=== PATIENT | female | born 1960 | race Caucasian/White ===

== ENCOUNTER 2017-08-11 21:45 | Inpatient (IN) | payer MEDICAID, OTHER ==
[~2017-08-11] VITALS: Ht 167.6 cm; Wt 86.2 kg
[2017-08-11 21:51] VITALS: BP 141/71
[2017-08-11] MEDS ORDERED: METF500T PO (21:54)
[2017-08-11] MEDS ORDERED: CARV3.12 PO (21:55)
[2017-08-11] MEDS ORDERED: HYDR-3423 PO (21:55)
[2017-08-11] MEDS ORDERED: NACL 0.9% 500 ML IV ONE (21:58)
--- NOTE | 2017-08-11 21:58 | NUR ---
Patient ambulated to bed 12.
[2017-08-11] MEDS ORDERED: ONDANSETRON 4 MG/2 ML VIAL IVP ONE (22:00)
[2017-08-11] MEDS ORDERED: KETOROLAC 30 MG/ML VIAL IVP ONE (22:00)
[2017-08-11 22:30] LABS: BASOPHILS # (AUTO) 0.4 K/uL (0.00-0.22); EOSINOPHILS # (AUTO) 0.1 K/uL (0-0.4); HEMOGLOBIN 13.4 g/dL (12.0-16.0); LYMPHOCYTES # (AUTO) 3.2 K/uL (2.5-16.5); MEAN CORPUSCULAR HEMOGLOBIN 30 pg (27-31); MEAN CORPUSCULAR HGB CONC 33 g/dL (33-37); MEAN CORPUSCULAR VOLUME 90 fL (80-94); MONOCYTES # (AUTO) 0.4 K/uL (0.8-1.0); NEUTROPHILS # (AUTO) 9.3 K/uL (1.8-7.7); PLATELET COUNT (AUTO) 197 K/uL (140-450); RED BLOOD CELL COUNT(AUTO) 4.44 MIL/uL (4.20-5.40); RED CELL DISTRIBUTION WIDTH 12.6 % (11.6-13.7); WHITE BLOOD COUNT (AUTO) 13.4 K/uL (4.8-10.8)
--- NOTE | 2017-08-11 22:35 | NUR ---
56/F PRESENTS TO ER C/O ABDOMINAL PAIN. PMH DIABETES. PT HAS PAIN IN RT LOWER ABDOMEN RADIATING TO RT LOWER BACK. PT STATES PAIN STARTED 3 HOURS PRIOR TO ARRIVAL. ABDOMEN IS SOFT, ROUND, NONTENDER, W/ HYPOACTIVE BS X4. PT DENIES FEVER, DIARRHEA. PT HAS N/V. AA&O X4. VSS. COMFORT NEEDS MET AT THIS TIME. ER MD NOTIFED OF PT STATUS.
--- NOTE | 2017-08-11 22:41 | NUR ---
Ultrasound at bedside.
[2017-08-11 22:49] LABS: ALBUMIN 3.9 g/dL (3.4-5.0); ANION GAP 16.8 (8-16); CARBON DIOXIDE 23.5 mmol/L (21-32); CREATININE 0.8 mg/dL (0.6-1.3); POTASSIUM 3.3 mmol/L (3.5-5.1); TOTAL BILIRUBIN 0.8 mg/dL (0.0-1.0)
[2017-08-11] MEDS ORDERED: MORPHINE SULFATE 2 MG/ML SYR IVP PRN (23:55)
[2017-08-11] MEDS ORDERED: HYDROcodone/APAP 5/325 MG 1 TAB TAB PO PRN (23:55)
[2017-08-11] MEDS ORDERED: ONDANSETRON 4 MG/2 ML VIAL IVP PRN (23:55)
[2017-08-11] MEDS ORDERED: LORazepam 2 MG/ML VIAL IVP PRN (23:55)
[2017-08-11] MEDS ORDERED: ACETAMINOPHEN 325 MG TAB PO PRN (23:55)
--- NOTE | 2017-08-12 00:12 | NUR ---
Patient will be admitted to care of dr mayer. Admited to [facility]. Will go to room 105-A. Belongings list completed. Report to RANJANA ALVA.
--- NOTE | 2017-08-12 00:20 | NUR ---
ADMITTED THIS 56 YEAR OLD FEMALE FROM ER PER WHEELCHAIR WITH CC OF ABDOMINAL PAIN, AMBULATED WITH STEADY GAIT TO BED, ASSESSMENT DONE, PT IRAQI SPEAKING AND CAN SPEAK A LITTLE [place], PT PREFER LILO THOMSON TO TRANSLATE, DENIES PAIN AT THIS TIME, ORIENTED TO ROOM AND CALL LIGHT, INSTRUCTED NPO AT THIS TIME FOR HIDA SCAN IN AM, VERBALIZED UNDERSTANDING, PLAN OF CARE DISCUSSED, CALL LIGHT WITHIN REACH.
[2017-08-12 00:30] VITALS: BP 121/77
[2017-08-12] MEDS: NACL 0.9% 1,000 ML IV SCH ×2 (00:37→16:32)
[2017-08-12] MEDS ORDERED: INFLUENZA VIRUS VACCINE QUAD 0.5 ML SYR IMVAC PRN (00:55)
[2017-08-12] MEDS ORDERED: PNEUMOCOCCAL VACCINE 23 MCG/0.5 ML VIAL IMVAC PRN (00:55)
--- NOTE | 2017-08-12 04:00 | NUR ---
ROUNDED ON PT, SLEEPING, NO SIGNS OF DISTRESS, MONITORED CLOSELY.
--- NOTE | 2017-08-12 06:10 | NUR ---
BLOOD SUGAR CHECKED WITH 126 RESULT, DENIES ANY PAIN, MAINTAINED ON NPO FOR HIDA SCAN TODAY, IVF INFUSING WELL, MONITORED CLOSELY.
[2017-08-12 06:47] LABS: BASOPHILS # (AUTO) 0.2 K/uL (0.00-0.22); BASOPHILS % (AUTO) 2.1 % (0.0-2.0); EOSINOPHILS # (AUTO) 0.1 K/uL (0-0.4); EOSINOPHILS % (AUTO) 1.4 % (0.0-4.0); HEMATOCRIT 40.7 % (36-48); HEMOGLOBIN 13.8 g/dL (12.0-16.0); LYMPHOCYTES # (AUTO) 2.1 K/uL (2.5-16.5); LYMPHOCYTES % (AUTO) 28.1 % (20.5-51.1); MEAN CORPUSCULAR HEMOGLOBIN 31 pg (27-31); MEAN CORPUSCULAR HGB CONC 34 g/dL (33-37); MEAN CORPUSCULAR VOLUME 91 fL (80-94); MONOCYTES # (AUTO) 0.5 K/uL (0.8-1.0); MONOCYTES % (AUTO) 7.4 % (1.7-9.3); NEUTROPHILS # (AUTO) 4.4 K/uL (1.8-7.7); PLATELET COUNT (AUTO) 183 K/uL (140-450); RED BLOOD CELL COUNT(AUTO) 4.49 MIL/uL (4.20-5.40); RED CELL DISTRIBUTION WIDTH 12.8 % (11.6-13.7); WHITE BLOOD COUNT (AUTO) 7.3 K/uL (4.8-10.8)
[2017-08-12 06:59] LABS: ALBUMIN 3.2 g/dL (3.4-5.0); ANION GAP 13.4 (8-16); CARBON DIOXIDE 25.3 mmol/L (21-32); CREATININE 0.7 mg/dL (0.6-1.3); POTASSIUM 3.7 mmol/L (3.5-5.1)
--- NOTE | 2017-08-12 07:10 | NUR ---
Patient's Plan of Care was discussed and reviewed with EMPLOYEE BENEFITS COORDINATOR: Deni BATRES
--- NOTE | 2017-08-12 07:10 | NUR ---
ASSUMED CONTINUITY OF CARE. NO SIGNS AND SYMPTOMS OF ACUTE DISTRESS NOTED. INITIAL ASSESSMENT DONE. KEEP COMFORTABLE ON BED. EXPLAINED DIAGNOSIS, PLAN OF CARE, PAIN MANAGEMENT TEACHING, USE OF CALL LIGHT/BED/TV/BATHROOM. VERBALIZED UNDERSTANDING. CALL LIGHT WITHIN REACH.
--- NOTE | 2017-08-12 07:10 | NUR ---
PT SLEEPING, NO SIGNS OF DISTRESS, REPORT GIVEN TO REMINGTON KWAN FOR CONTINUITY OF CARE.
[2017-08-12 08:00] VITALS: BP 118/64
--- NOTE | 2017-08-12 08:35 | NUR ---
DR. PRICE CAME, SPOKE TO PT. AND PT. FAMILY MEMBERS ON BEDSIDE.
[2017-08-12] MEDS: ENOXAPARIN 40 MG/0.4 ML SYR SUBQ SCH (08:47)
--- NOTE | 2017-08-12 08:55 | NUR ---
CM NOTE INITIAL REVIEW FAXED TO [facility] [phone] BRENDA SILVESTREA # [phone]
--- NOTE | 2017-08-12 08:56 | NUR ---
WENT TO CT VIA WHEELCHAIR. IN STABLE CONDITION.
--- NOTE | 2017-08-12 09:17 | NUR ---
PATIENT HAS BEEN SCREENED AND CATEGORIZED MODERATE NUTRITION RISK. PATIENT WILL BE SEEN WITHIN 3-5 DAYS OF ADMISSION. 08/14/17-08/16/[address]
--- NOTE | 2017-08-12 11:48 | NUR ---
BACK FROM HIDA SCAN PROCEDURE VIA WHEELCHAIR. NO C/O PAIN. NO C/O N/V. KEEP COMFORTABLE ON BED. CALL LIGHT WITHIN REACH.
[2017-08-12 12:00] VITALS: BP 117/72
--- NOTE | 2017-08-12 15:05 | NUR ---
DR. PRICE CALLED BACK, INFORMED OF CT ABD WITHOUT CONTRAST RESULTS. NO ORDER RECEIVED.
--- NOTE | 2017-08-12 19:07 | NUR ---
REPORT GIVEN TO ARTIE CRONIN. IVF INFUSING WELL. IN STABLE CONDITION.
--- NOTE | 2017-08-12 19:10 | NUR ---
RECEIVED PT AWAKE TALKING TO FAMILY MEMBERS AT BEDSIDE, DENIES ANY PAIN, IVF INFUSING WELL, PLAN OF CARE DISCUSSED, SAFETY MEASURES IN PLACE, CALL LIGHT WITHIN REACH.
--- NOTE | 2017-08-12 21:00 | NUR ---
ROUNDED ON PT, AWAKE WATCHING TV, DENIES ANY PAIN, IVF INFUSING WELL, ALL NEEDS ATTENDED.
[2017-08-13] VITALS: BP 106/62
--- NOTE | 2017-08-13 | NUR ---
PT SLEEPING, EASILY AROUSABLE, VITAL SIGNS STABLE, DENIES ANY PAIN, IVF INFUSING WELL, CONTINUE TO MONITOR CLOSELY.
[2017-08-13] MEDS: NACL 0.9% 1,000 ML IV SCH ×2 (00:52→04:29)
--- NOTE | 2017-08-13 03:47 | NUR ---
ROUNDED ON PT, SLEEPING, NO SIGNS OF DISTRESS, MONITORED CLOSELY.
--- NOTE | 2017-08-13 06:17 | NUR ---
BLOOD SUGAR CHECKED WITH 100 RESULT, DENIES ANY PAIN, IVF INFUSING WELL, MONITORED CLOSELY.
[2017-08-13 06:31] LABS: BASOPHILS # (AUTO) 0.2 K/uL (0.00-0.22); BASOPHILS % (AUTO) 4.3 % (0.0-2.0); EOSINOPHILS # (AUTO) 0.2 K/uL (0-0.4); EOSINOPHILS % (AUTO) 3.4 % (0.0-4.0); HEMOGLOBIN 12.3 g/dL (12.0-16.0); LYMPHOCYTES # (AUTO) 2.2 K/uL (2.5-16.5); LYMPHOCYTES % (AUTO) 39.3 % (20.5-51.1); MEAN CORPUSCULAR HEMOGLOBIN 30 pg (27-31); MEAN CORPUSCULAR HGB CONC 33 g/dL (33-37); MEAN CORPUSCULAR VOLUME 91 fL (80-94); MONOCYTES # (AUTO) 0.4 K/uL (0.8-1.0); NEUTROPHILS # (AUTO) 2.7 K/uL (1.8-7.7); PLATELET COUNT (AUTO) 180 K/uL (140-450); RED BLOOD CELL COUNT(AUTO) 4.05 MIL/uL (4.20-5.40); RED CELL DISTRIBUTION WIDTH 12.8 % (11.6-13.7); WHITE BLOOD COUNT (AUTO) 5.7 K/uL (4.8-10.8)
[2017-08-13 06:52] LABS: ANION GAP 12.7 (8-16); CARBON DIOXIDE 25.2 mmol/L (21-32); CREATININE 0.8 mg/dL (0.6-1.3); POTASSIUM 3.9 mmol/L (3.5-5.1); TOTAL BILIRUBIN 0.7 mg/dL (0.0-1.0)
--- NOTE | 2017-08-13 07:21 | NUR ---
PT AWAKE, NO SIGNS OF DISTRESS, REPORT GIVEN TO RANJANA GONZALEZ FOR CONTINUITY OF CARE.
--- NOTE | 2017-08-13 07:23 | NUR ---
RECEIVED REPORT FROM RANJANA ALVA AT BEDSIDE. PT RESTING IN BED. NO S/S OF ACUTE DISTRESS. PT DENIES PAIN. IV SITE PATENT AND INTACT. AAOX4. PLAN OF CARE DISCUSSED WITH PT. PT VERBALIZED UNDERSTANDING. CALL LIGHT WITHIN REACH. SAFETY MEASURES ENSURED. WILL CONTINUE TO MONITOR.
[2017-08-13 07:54] VITALS: BP 116/73
[2017-08-13] MEDS ORDERED: DOCU-299 PO (08:21)
[2017-08-13] MEDS ORDERED: ACET650S53 GT/PO (08:21)
[2017-08-13] MEDS ORDERED: OMEP20TC12 PO (08:21)
[2017-08-13] MEDS ORDERED: POLYETHYLENE GLYCOL 17 GM/PKT PO SCH (09:00)
[2017-08-13] MEDS: ENOXAPARIN 40 MG/0.4 ML SYR SUBQ SCH (09:17)
--- NOTE | 2017-08-13 09:18 | NUR ---
CM NOTE CONCURRENT REVIEW FAXED TO [facility] [phone] BRENDA WORTHINGTON # [phone]
--- NOTE | 2017-08-13 09:20 | NUR ---
AM MEDICATIONS GIVEN WITH EDUCATION. PT VERBALIZED UNDERSTANDING. CALL LIGHT WITHIN REACH. SAFETY MEASURES ENSURED. WILL CONTINUE TO MONITOR.
[2017-08-13 09:21] LABS: HEPATITIS A ANTIBODY IGM Negative (Negative); HEPATITIS B SURFACE AB Reactive (.); HEPATITIS B SURFACE ANTIGEN Negative (Negative)
[2017-08-13 09:27] VITALS: BP 116/73
--- NOTE | 2017-08-13 11:30 | NUR ---
PT CLEARED FOR DISCHARGE HOME. PT DIDN'T HAVE A BOWEL MOVEMENT BUT STATES SHE WANTS TO GO HOME NOW AND THAT SHE HAD A BOWEL MOVEMENT ON FRIDAY AFTERNOON. PT DENIES PAIN. NO S/S OF ACUTE DISTRESS. DR. PRICE MADE AWARE. STATES PT IS OKAY TO GO. DISCHARGE INSTRUCTIONS GIVEN. PT VERBALIZED UNDERSTANDING. PT TAKEN TO FRONT LOBBY WITH SON. PT REMAINS STABLE
== END 2017-08-13 11:30 | disposition home or self-care (01) ==
LOC: MED 21:45 → MTU 23:57
PROVIDERS: ADMIT Hospitalist; ATTEND Hospitalist
DX: B19.9 Unspecified viral hepatitis without hepatic coma (principal); K76.0 Fatty (change of) liver, not elsewhere classified; I10 Essential (primary) hypertension; E11.9 Type 2 diabetes mellitus without complications; E66.9 Obesity, unspecified; K59.00 Constipation, unspecified; Z79.899 Other long term (current) drug therapy; Z68.30 Body mass index [BMI] 30.0-30.9, adult; E87.6 Hypokalemia
CPT/HCPCS: 36415; 74150; 76705; 78445; 80053; 81025; 82948; 83690; 85025; 85610; 86704; 86706; 86709; 86803; 87081; 87340; 90658; 90732; 96361; 96374; 96375; 99285; J1650; J1885; J2405; J7030; Q0092

== ENCOUNTER 2019-07-22 08:57 | Emergency (ER) | payer OTHER ==
[~2019-07-22] VITALS: Ht 160 cm; Wt 89.4 kg
[~2019-07-22 08:57] MED LIST: ACET650S53 GT/PO; CARV3.12 PO; DOCU-299 PO; HYDR-3293 PO; METF500T PO; OMEP20TC12 PO
[2019-07-22 09:02] VITALS: BP 149/82
[2019-07-22] MEDS ORDERED: NACL 0.9% 1,000 ML IV ONE (09:10)
--- NOTE | 2019-07-22 09:20 | NUR ---
58F c/o dizzy, weak, bilateral leg pain, right flank area, LLQ abdominal pain x today. No fever. States nausea, frequency, urgency. PATIENT STATES PAIN OF 8/10 AT THIS TIME; VSS; PATIENT POSITIONED FOR COMFORT; HOB ELEVATED; BEDRAILS UP X1; BED DOWN. ER MD MADE AWARE OF PT STATUS. IS AT BEDSIDE.
[2019-07-22 09:22] LABS: BASOPHILS # (AUTO) 0.1 K/uL (0.00-0.22); BASOPHILS % (AUTO) 0.8 % (0.0-2.0); EOSINOPHILS # (AUTO) 0.2 K/uL (0-0.4); EOSINOPHILS % (AUTO) 2.7 % (0.0-4.0); HEMATOCRIT 40.9 % (36-48); HEMOGLOBIN 13.7 g/dL (12.0-16.0); LYMPHOCYTES # (AUTO) 3.7 K/uL (2.5-16.5); LYMPHOCYTES % (AUTO) 50.1 % (20.5-51.1); MEAN CORPUSCULAR HEMOGLOBIN 31 pg (27-31); MEAN CORPUSCULAR HGB CONC 34 g/dL (33-37); MEAN CORPUSCULAR VOLUME 91.2 fL (80-94); MONOCYTES # (AUTO) 0.5 K/uL (0.8-1.0); MONOCYTES % (AUTO) 6.6 % (1.7-9.3); NEUTROPHILS # (AUTO) 2.9 K/uL (1.8-7.7); NEUTROPHILS % (AUTO) 39.8 % (42.2-75.2); PLATELET COUNT (AUTO) 245 K/uL (140-450); RED BLOOD CELL COUNT(AUTO) 4.48 MIL/uL (4.20-5.40); RED CELL DISTRIBUTION WIDTH 13.2 % (11.6-13.7); WHITE BLOOD COUNT (AUTO) 7.4 K/uL (4.8-10.8)
[2019-07-22 09:38] LABS: ANION GAP 14.3 (8-16); CREATININE 0.7 mg/dL (0.6-1.3); POTASSIUM 4.3 mmol/L (3.5-5.1)
[2019-07-22 09:41] LABS: ALBUMIN 4.1 g/dL (3.4-5.0); TOTAL BILIRUBIN 0.4 mg/dL (0.0-1.0)
[2019-07-22] MEDS ORDERED: MECLIZINE 25 MG TAB PO ONE (09:50)
--- NOTE | 2019-07-22 09:58 | NUR ---
PT WAS TAKEN TO DO CT SCAN VIA GURNEY BY WATER FABRICATOR OPERATOR.
--- NOTE | 2019-07-22 10:15 | NUR ---
PT IS BACK FROM CT SCAN VIA GURNEY ASSISTED BY MACHINE TAILER.
--- NOTE | 2019-07-22 11:05 | NUR ---
URINE SAMPLE COLLECTED. PT USED BEDPAN AND CORPERATED WELL.
--- NOTE | 2019-07-22 11:48 | NUR ---
PT HAS BEEN DISCHARGED WITH STABLE VITAL SIGNS. ASSISTED PT TO CALL HER TO PICK HER UP WITH NO ONE ANSWER THE PHONE. WILL TRY LATER.
--- NOTE | 2019-07-22 11:52 | NUR ---
CALLED PT'S FAMILY MEMBER, DAUGHTER SAID WILL COME AND PICK PT UP. Addendum: 07/22/19 at 1154 by SOFIA PHONE #: [phone]
[2019-07-22 12:03] VITALS: BP 122/67
--- NOTE | 2019-07-22 12:03 | NUR ---
Patient discharged with v/s stable. Written and verbal after care instructions given and explained. Patient alert, oriented and verbalized understanding of instructions. Wheel Chair Assisted with by daughter. All questions addressed prior to discharge. ID band removed. Patient advised to follow up with PMD. Rx of Meclizine given. Patient educated on indication of medication including possible reaction and side effects. Opportunity to ask questions provided and answered.
== END 2019-07-22 12:03 | disposition home or self-care (01) ==
LOC: MED 08:57
DX: R42 Dizziness and giddiness (principal); R35.0 Frequency of micturition; R11.2 Nausea with vomiting, unspecified; R39.15 Urgency of urination; I10 Essential (primary) hypertension; E11.9 Type 2 diabetes mellitus without complications; Z79.1 Long term (current) use of non-steroidal anti-inflammatories (NSAID); Z79.899 Other long term (current) drug therapy; Z79.84 Long term (current) use of oral hypoglycemic drugs
CPT/HCPCS: 36415; 70450; 74018; 80053; 81002; 82948; 85025; 96360; 96361; 99284; J7030; J8597; Q0092

== ENCOUNTER 2022-03-15 13:38 | Emergency (ER) | payer OTHER ==
[~2022-03-15] VITALS: Ht 165.1 cm; Wt 92.5 kg
[~2022-03-15 13:38] MED LIST changes: +METF-346 PO; -METF500T PO; +OMEP-278 PO; -OMEP20TC12 PO
[2022-03-15 13:41] VITALS: BP 144/93
--- NOTE | 2022-03-15 13:45 | NUR ---
61 Y/O FEMALE BIB SON C/O EPIGASTRIC PAIN/ ABDOMINAL PAIN, NAUSEA AND DIZZINESS X THIS AM. PAIN RATED 8/10 RADIATES TO THE CHEST/NECK. PT FEELS LIKE SHE HAS "ACID" RUNNING UP HER THROAT. PT STATES SHE TOOK OMEPRAZPOLE THIS AM WITH NO SYMPTOMATIC RELIEF. PT DENIES ALLEVIATING OR AGREVATING FACTORS.PT STATES SHE TOOK ASPIRIN 81MG THIS MORNING. LUNGS CTA. PT DENIES FEVER, CHILLS, DIARRHEA. PT ALERT AND ORIENTED X4. BED LOCKED TO LOWEST POSITION. MONITOR IN PLACE. BED RAIL X1. PMH: DM TYPE II, HTN, HDL MEDS:ASPIRIN, ZOFRAN NKA
[2022-03-15] MEDS ORDERED: GABAPENTIN 300 MG CAP PO ONE (14:20)
[2022-03-15] MEDS ORDERED: ALUMINUM HYD/MAG/SIMETHICONE 30 ML UDC PO ONE (14:20)
[2022-03-15] MEDS ORDERED: FAMOTIDINE 20 MG TAB PO ONE (14:20)
[2022-03-15] MEDS ORDERED: ONDANSETRON 4 MG ODT PO ONE (14:20)
--- NOTE | 2022-03-15 14:29 | NUR ---
LAB AT PT BEDSIDE
[2022-03-15 14:41] LABS: BASOPHILS % (AUTO) 0.6 % (0.0-2.0); EOSINOPHILS # (AUTO) 0.1 K/uL (0-0.4); EOSINOPHILS % (AUTO) 1.6 % (0.0-4.0); HEMATOCRIT 36.1 % (36-48); HEMOGLOBIN 12.4 g/dL (12.0-16.0); LYMPHOCYTES # (AUTO) 2.4 K/uL (2.5-16.5); LYMPHOCYTES % (AUTO) 32.5 % (20.5-51.1); MEAN CORPUSCULAR HEMOGLOBIN 31 pg (27-31); MEAN CORPUSCULAR HGB CONC 34 g/dL (33-37); MEAN CORPUSCULAR VOLUME 89.5 fL (80-94); MONOCYTES # (AUTO) 0.5 K/uL (0.8-1.0); MONOCYTES % (AUTO) 6.5 % (1.7-9.3); NEUTROPHILS # (AUTO) 4.3 K/uL (1.8-7.7); NEUTROPHILS % (AUTO) 58.8 % (42.2-75.2); PLATELET COUNT (AUTO) 251 K/uL (140-450); RED BLOOD CELL COUNT(AUTO) 4.03 MIL/uL (4.20-5.40); WHITE BLOOD COUNT (AUTO) 7.4 K/uL (4.8-10.8)
[2022-03-15 15:03] LABS: ALBUMIN 3.8 g/dL (3.4-5.0); ASPARTATE AMINOTRANSFERASE 24 U/L (15-37); CARBON DIOXIDE 25.6 mmol/L (21-32); CHLORIDE 96 mmol/L (98-107); CREATININE 0.7 mg/dL (0.6-1.3); GFR ARICAN-AMERICAN 109 mL/min (>90); GLUCOSE 134 mg/dL (74-106); POTASSIUM 3.6 mmol/L (3.5-5.1); SODIUM SERUM 130 mmol/L (136-145); TOTAL BILIRUBIN 0.4 mg/dL (0.0-1.0); UREA NITROGEN, BLOOD 7 mg/dL (7-18)
--- NOTE | 2022-03-15 15:18 | NUR ---
PT RESTING IN NO APPARENT DISTRESS, BREATHING EVEN AND UNLABORED. SON AT PT BEDSIDE.
--- NOTE | 2022-03-15 16:48 | NUR ---
PT CONTINUES RESTING IN NO APPARENT DISTRESS, MONITOR IN PLACE. SON AT PT BEDSIDE.
--- NOTE | 2022-03-15 17:14 | NUR ---
PT AMBULATED TO RR. STEADY GAIT.
--- NOTE | 2022-03-15 18:44 | NUR ---
PT TAKEN TO CT VIA WC.
--- NOTE | 2022-03-15 19:23 | NUR ---
Pt report given to RANJANA CHAMBERS. Transfer of care at this time.
[2022-03-15] MEDS ORDERED: ALUM355S59 PO (20:18)
[2022-03-15] MEDS ORDERED: FAMO-90 PO (20:18)
[2022-03-15] MEDS ORDERED: ONDA-188 SL (20:18)
[2022-03-15] MEDS ORDERED: KETOROLAC 15 MG/ML VIAL IVP ONE (20:20)
[2022-03-15 20:45] VITALS: BP 137/75
--- NOTE | 2022-03-15 20:45 | NUR ---
Patient discharged with v/s stable. Written and verbal after care instructions given and explained. Patient alert, oriented and verbalized understanding of instructions. Ambulatory with steady gait. All questions addressed prior to discharge. ID band removed. Patient advised to follow up with PMD. Rx of zofran, maalox, amnd pepcid given. Opportunity to ask questions provided and answered.
== END 2022-03-15 20:45 | disposition home or self-care (01) ==
LOC: MED 13:38
DX: K29.70 Gastritis, unspecified, without bleeding (principal); R07.9 Chest pain, unspecified; N20.0 Calculus of kidney; E11.9 Type 2 diabetes mellitus without complications; I10 Essential (primary) hypertension; Z79.4 Long term (current) use of insulin
CPT/HCPCS: 36415; 71045; 74177; 80053; 81002; 83690; 84484; 85025; 93005; 96374; 99285; J1885; Q0162; Q9967

== ENCOUNTER 2022-06-03 07:21 | Emergency (ER) | payer OTHER ==
[~2022-06-03] VITALS: Ht 157.5 cm; Wt 87.1 kg
[~2022-06-03 07:21] MED LIST changes: +ALUM355S59 PO; +FAMO-90 PO; +ONDA-188 SL
[2022-06-03 07:36] VITALS: BP 128/43
--- NOTE | 2022-06-03 07:40 | NUR ---
PT AMBULATED TO OUTSIDE THE LOBBY
--- NOTE | 2022-06-03 08:27 | NUR ---
61 Y/O FEMALE BIB SELF C/O BODY ACHES, LEFT SHOULDER, L KNEE, L ARM PAIN, N/D X1 WEEK. PER PT SHE TESTED POSITIVE FOR COVID X1 WEEK AGO AND WAS TAKING PAXLOVID WITH NO IMPROVEMENT OF S/S NKA PMH: HTN, DM, STENT IN HEART (APRIL 2021)
--- NOTE | 2022-06-03 09:00 | NUR ---
swabs handed to luzmaria an tech
--- NOTE | 2022-06-03 11:36 | NUR ---
SEEN BY KRYSTA GARCIA IN LOBBY
[2022-06-03] MEDS ORDERED: AMOX-999 PO (11:38)
[2022-06-03] MEDS ORDERED: KETOROLAC 30 MG/ML VIAL IM ONE (11:40)
[2022-06-03 11:59] VITALS: BP 121/75
--- NOTE | 2022-06-03 11:59 | NUR ---
Patient discharged with v/s stable. Written and verbal after care instructions given and explained. Patient alert, oriented and verbalized understanding of instructions. Ambulatory with steady gait. All questions addressed prior to discharge. ID band removed. Patient advised to follow up with PMD. Rx of AUGMENTIN 500-125 given. Patient educated on indication of medication including possible reaction and side effects. Opportunity to ask questions provided and answered.
== END 2022-06-03 11:59 | disposition home or self-care (01) ==
LOC: MED 07:21
DX: N12 Tubulo-interstitial nephritis, not specified as acute or chronic (principal); Z20.822 Contact with and (suspected) exposure to COVID-19; E11.9 Type 2 diabetes mellitus without complications; I10 Essential (primary) hypertension; Z79.899 Other long term (current) drug therapy
CPT/HCPCS: 81002; 87426; 96372; 99283; J1885

== ENCOUNTER 2023-02-26 07:56 | Emergency (ER) | payer OTHER ==
[~2023-02-26] VITALS: Ht 162.6 cm; Wt 90.7 kg
[~2023-02-26 07:56] MED LIST changes: +AMOX-999 PO
[2023-02-26 08:06] VITALS: BP 127/76
[2023-02-26] MEDS ORDERED: KETOROLAC 60 MG/2 ML VIAL IM ONE (08:45)
--- NOTE | 2023-02-26 09:16 | NUR ---
pt report from amilcar raines.
[2023-02-26] MEDS ORDERED: ACET-8905 PO (09:59)
[2023-02-26] MEDS ORDERED: ONDA-188 PO (09:59)
[2023-02-26] MEDS ORDERED: NIRM1TAB PO (10:11)
[2023-02-26 10:24] VITALS: BP 133/70
--- NOTE | 2023-02-26 10:26 | NUR ---
Patient discharged with v/s stable. Written and verbal after care instructions given and explained. Patient alert, oriented and verbalized understanding of instructions. Ambulatory with steady gait. All questions addressed prior to discharge. ID band removed. Patient advised to follow up with PMD. Rx of hydrocodone/acetaminopeh, nirmatrelvir/ritonavir, zofran given. Patient educated on indication of medication including possible reaction and side effects. Opportunity to ask questions provided and answered.
== END 2023-02-26 10:26 | disposition home or self-care (01) ==
LOC: MED 07:56
DX: U07.1 COVID-19 (principal); I11.0 Hypertensive heart disease with heart failure; E11.9 Type 2 diabetes mellitus without complications; Z79.4 Long term (current) use of insulin; Z79.899 Other long term (current) drug therapy
CPT/HCPCS: 87426; 87804; 93005; 96372; 99284; J1885